=== PATIENT | female | born 1970 | race Caucasian/White ===

== ENCOUNTER 2017-11-23 05:44 | Day surgery (SDC) | payer OTHER ==
[2017-11-23] MEDS ORDERED: FENTAnyl 50 MCG/ML VIAL (16:28)
[2017-11-23] MEDS ORDERED: MIDAZOLAM 1 MG/ML 2 ML INJ ×2 (16:28)
== END 2017-11-23 11:45 | disposition home or self-care (01) ==
LOC: GIL 05:44
DX: K44.9 Diaphragmatic hernia without obstruction or gangrene (principal); K21.9 Gastro-esophageal reflux disease without esophagitis; K29.60 Other gastritis without bleeding
CPT/HCPCS: 43239; 84703; 87081

== ENCOUNTER 2018-01-26 11:27 | Day surgery (SDC) | payer OTHER ==
[2018-01-26] MEDS ORDERED: MIDAZOLAM 1 MG/ML 2 ML INJ ×2 (13:37)
[2018-01-26] MEDS ORDERED: FENTAnyl 50 MCG/ML VIAL (13:37)
== END 2018-01-26 14:49 | disposition home or self-care (01) ==
LOC: GIL 11:27
DX: K64.8 Other hemorrhoids (principal)
CPT/HCPCS: 45380; 84703; 88305

== ENCOUNTER 2018-04-14 07:08 | Day surgery (SDC) | payer OTHER ==
[2018-04-14] MEDS: LACTATED RINGER'S 1,000 ML IV* (06:30)
[~2018-04-14 07:08] MED LIST: BUPIVACAINE 0.25% (MPF) 30 ML INJ; CEFAZOLIN 2 GM/50 ML (PMX) 50 ML IVPB; LIDOCAINE 2% (SDV) 5 ML INJ; POLYMYXIN/BACITRACIN 1L IRRIG; ROCURONIUM 50 MG INJ
[2018-04-14] MEDS: BUPIVACAINE 0.25%/EPI (SDV) 30 ML INJ (07:48)
[2018-04-14] MEDS ORDERED: PROPOFOL 100 ML (07:56)
[2018-04-14] MEDS ORDERED: ROCURONIUM 50 MG INJ (08:33)
[2018-04-14] MEDS ORDERED: CEFAZOLIN 1 GM INJ (08:34)
[2018-04-14] MEDS ORDERED: DEXAMETHASONE 4 MG/ML 1 ML INJ (08:34)
[2018-04-14] MEDS ORDERED: ONDANSETRON 4 MG INJ ×2 (08:34→09:36)
[2018-04-14] MEDS ORDERED: SUGAMMADEX SODIUM 200 MG/2 ML VIAL IV (09:16)
[2018-04-14] MEDS ORDERED: HYDROmorphONE 1 MG/5 ML IV SYRINGE IV ×5 (09:36→10:00)
[2018-04-14] MEDS ORDERED: MEPERIDINE 25 MG INJ (09:52)
[2018-04-14] MEDS: HYDROmorphONE 1 MG/5 ML IV SYRINGE IV ×2 (09:56→10:09)
[2018-04-14] MEDS: ONDANSETRON 4 MG INJ IV (09:56)
[2018-04-14] MEDS: MEPERIDINE 25 MG INJ IV (09:56)
[2018-04-14] MEDS ORDERED: FENTAnyl 50 MCG/ML VIAL IV ×3 (10:00)
[2018-04-14] MEDS ORDERED: OXYCODONE/ACETAMINOPHEN (5/325) TAB PO ×2 (10:00)
[2018-04-14] MEDS ORDERED: hydrALAzine 20 MG INJ IV (10:00)
[2018-04-14] MEDS ORDERED: ONDANSETRON 4 MG INJ IV (10:00)
[2018-04-14] MEDS ORDERED: ALBUTEROL 0.083% (NEB) 2.5 MG/3 ML AMP HHN (10:00)
[2018-04-14] MEDS ORDERED: DIPHENHYDRAMINE 50 MG INJ IV (10:00)
[2018-04-14] MEDS ORDERED: LABETALOL HCL 20MG INJ IV (10:00)
[2018-04-14] MEDS ORDERED: EPHEDrine SULFATE 50 MG/5 ML SYG IV (10:00)
[2018-04-14] MEDS: KETOROLAC 30 MG INJ IV (10:19)
== END 2018-04-14 11:05 | disposition home or self-care (01) ==
LOC: SDS 07:08
DX: Z30.2 Encounter for sterilization (principal); K21.9 Gastro-esophageal reflux disease without esophagitis
CPT/HCPCS: 58670; 71045; 93005